=== PATIENT | female | born 1985 | race Caucasian/White ===

== ENCOUNTER 2023-06-04 06:48 | Outpatient (CLI) | payer BC, SELFPAY ==
--- NOTE | ~2023-06-04 | CT_ITS ---
CT of the Abdomen and Pelvis: Indication: Hematuria Technique: 2.5 mm axial scans were obtained through the abdomen and pelvis prior to and following in travenous administration of 130 cc of Omnipaque 350. Dose reduction technique was used on this scan b y utilizing automated exposure control and iterative reconstruction technique. The dose-length produc t (DLP) was 524.43 mGy-cm. Findings: Scans through the lung bases are unremarkable. The liver, spleen, pancreas, gallbladder, and adrenal glands are within normal limits. Small bilatera l nonobstructing renal stones are present. No evidence of aortic aneurysm. No lymphadenopathy. No bowel obstruction or bowel wall thickening. There is no evidence to suggest acute appendicitis. Images through the pelvis were performed. Urinary bladder unremarkable. No adnexal mass evident. Ther e is trace pelvic ascites, nonspecific. Impression: Small bilateral nonobstructing renal stones. Reviewed, dictated and finalized at [facility]. PRESSER Impression: Small bilateral nonobstructing renal stones.
== END 2023-06-04 06:49 | disposition home or self-care (01) ==
PROVIDERS: Visit Provider Physician Assistant
DX: R31.0 Gross hematuria (principal); N20.0 Calculus of kidney
CPT/HCPCS: 74178; Q9967